=== PATIENT | female | born 1985 | race Caucasian/White ===

== ENCOUNTER → 2017-03-23 | Outpatient (CLI) | payer OTHER ==
[~2017-03-23] MED LIST: DEXA2TAB7 PO; DOC100 PO; DOCU240C84 PO; FERR325T24 PO; IBU800 PO; IBUP800T37 PO; IRO150 PO; LEVO1TAB31 PO; LOR5 PO; LOR5/325 PO; OXYC-865 PO; PER PO; PREN-85 PO; PRO25 PO
[2017-03-23 10:16] LABS: LDL CHOLESTEROL 127 mg/dl
== END ==
LOC: LAB 09:28
DX: E66.01 Morbid (severe) obesity due to excess calories (principal); Z87.898 Personal history of other specified conditions
CPT/HCPCS: 36415; 82040; 82247; 82306; 82310; 82374; 82435; 82465; 82565; 82607; 82947; 83036; 83540; 83550; 83718; 83970; 84075; 84132; 84134; 84155; 84295; 84425; 84450; 84460; 84478; 84520; 85027

== ENCOUNTER 2017-03-28 12:59 | Outpatient (RCR) | payer OTHER ==
[~2017-03-28] VITALS: Ht 160 cm; Wt 144.2 kg
--- NOTE | 2017-03-28 14:53 | Medical Nutrition Therapy ---
Nutrition Anthropometrics Height (Inches): 63.00 (stated) Weight (Pounds): 318 (standing scale) Daniel Nutrition Score: Daniel Nutrition Risk Score: Dietary Referral Nutrition Risk Factors: Nutrition Risk Comment: Physical Findings Physical Appearance: Morbidly Obese 40+ Skin Appearance Skin Appearance: Edema Edema Location Modifier: Edema Location: Type of Edema: Degree of Edema: Gastrointestinal Symptoms GI Symtoms: Tube Present: Bowel Sounds: Recent Bowel Pattern: Stool Characteristics: Nutrition/Food History Breakfast: protein shake Lunch: 4:00 yogurt Dinner: usually large meal- 2/1= 3c spagetti with meat sauce Snacks: fruit snacks Nutritional Education Nutrition Education Topic: Weight Loss Diet Learning Readiness: Interested Teaching Methods: Discussion, Handout, Demonstration Response to Teaching: Verbalize understanding Teaching Recipient: Patient Nutrition Counseling: Pt states planning on gastic sleep surgery. Pt states she is not an emotional eater. Pt states usually drinks a protein shake at brft then will not eat again until supper. By that time, she is very hungary and will ususally eat asnack prior to supper than with eat until stuffed at supper. Pt states has been successful with ideal protein diet in the past and carb counting. Discussed importance of changing eating habits and not eating unil over fed. Reviewed Skill fro Success from Dr Gonzalez handouts. Discussed how to change eating habits and obtain some wt loss prior to surgery. Pt will follow a modified high protein, low CHO diet. Will limit CHO to 80- 90gm/day and use plate method to increase non starchy veg and lean meat. Pt will f/u in 1 month. Will discuss exercise goals at that time. Nutrition Monitoring & Eval Nutritional Goals Comment: * Pt will loss minimum of 19#/3 month by: *Use plate method of portion control and limit high CHO foods to 90gm/day. *Will eat at least 3 meals/day. RD Patient Assessment Time: [address] Assessment Type: RD Education Follow Up Date: Apr 25, 2017 Nutritional Comment: Provided 60 minute MNT focusing on wt loss. Copies To Copies to: GIDEON CISNEROS MD, BETH Mar 28, 2017 14:53
== END 2017-05-02 ==
LOC: DIET 12:59
PROVIDERS: ATTEND Surgery
DX: Z71.3 Dietary counseling and surveillance (principal); E66.01 Morbid (severe) obesity due to excess calories; Z68.43 Body mass index [BMI] 50.0-59.9, adult
CPT/HCPCS: 97802

== ENCOUNTER 2017-05-23 21:29 | Emergency (ER) | payer OTHER ==
--- NOTE | 2017-05-23 21:40 | ER Report ---
History and Physical Time Seen By MD: 21:40 Hx. of Stated Complaint: ABDOMINAL PAIN MID LOWER ABDOMEN RADIATING TO BACK SINCE TUESDAY, WORSENING HPI/ROS CHIEF COMPLAINT: Abdominal pain HISTORY OF PRESENT ILLNESS: This is a 32 year old female. She is having abdominal pain. The pain is central abdomen and into the lower abdomen. Radiation to the back. Started Tuesday and worsening since then. Usually has constipation, but has had diarrhea for a few days. No nausea or vomiting. No fevers or chills. No dysuria or frequency. No periods since her ablation. Also history of cholecystectomy and x2. REVIEW OF SYSTEMS: Constitutional: No fever or chills. Eyes: No vision changes. ENT: No sore throat. No congestion. Cardiovascular: No chest pain. No palpitations. Respiratory: No cough. No shortness of breath. Gastrointestinal: As above. Genitourinary: As above. Musculoskeletal: No extremity pain. Skin: No rashes. Neurological: No weakness. No headache. Allergies: Coded Allergies: No Known Drug Allergies (Unverified , 10/16/08) Home Meds Active Scripts Oxycodone Hcl/Acetaminophen (PERCOCET 5-325 MG TABLET) 1 Each Tablet, 1 EACH PO Q4H Y for PAIN, #12 TAB 0 Refills Prov:DANG RODRIGUEZ MD 05/23/17 Discontinued Scripts Hydrocodone Bit/Acetaminophen (HYDROCODON-ACETAMINOPHEN 5-325) 1 Each Tablet, 1- 2 EACH PO Q4H Y for PAIN, #10 TAB 0 Refills Prov:ZULAY CORNEJO MD 05/12/16 Reviewed Nurses Notes: Yes Hx Smoking: No Smoking Status: Never Smoker Exposure to Second Hand Smoke?: No Hx Alcohol Use: Yes Constitutional Vital Sign - Last 24 Hours 05/23/17 05/23/17 05/23/17 05/23/17 21:33 21:45 21:55 22:00 Temp 98.3 Pulse 87 79 101 Resp 18 B/P (MAP) 126/94 123/57 (79) 117/58 (77) Pulse Ox 95 98 96 O2 Delivery Room Air 05/23/17 05/23/17 05/23/17 05/23/17 22:05 22:15 22:31 22:35 Pulse 91 ??? 87 B/P (MAP) 138/61 (86) Pulse Ox 90 90 93 05/23/17 05/23/17 05/23/17 05/23/17 22:45 22:55 23:00 23:10 Pulse ??? 89 ??? 99 B/P (MAP) ???/??? (3995) 116/74 (88) Pulse Ox 93 93 94 92 05/23/17 05/23/17 23:15 23:20 Pulse 97 B/P (MAP) 123/79 (94) Pulse Ox 93 Physical Exam General Appearance: The patient is alert. Mild acute distress due to pain. Non-toxic in appearance. Eyes: Pupils are equal, round. No pallor, injection or icterus. ENT: Mucous membranes are moist. Normal oral mucosa. Posterior oropharynx is normal. Respiratory: Lungs are clear to auscultation. Cardiovascular: Regular rate and rhythm. No murmurs, gallops or rubs. Normal capillary refill. Gastrointestinal: Abdomen is soft, tender throughout. Mild distension. Rebound but no guarding. Hypoactive bowel sounds. No costovertebral angle tenderness with percussion. Neurological: Alert and oriented x3. Skin: Warm and dry. DIFFERENTIAL DIAGNOSIS: After history and physical exam, differential diagnosis was considered for abdominal pain including but not limited to appendicitis, cholecystitis, gastritis and urinary tract infection. Medical Decision Making Data Points Result Diagram: 05/23/17214205/23/172142 Laboratory Hematology Test 05/23/17 21:43 Red Blood Count 4.77 M/uL (4.17-5.56) Mean Corpuscular Volume 87.5 fL (80.0-96.0) Mean Corpuscular Hemoglobin 30.4 pg (26.0-33.0) Mean Corpuscular Hemoglobin Concent 34.7 g/dL (32.0-36.0) Red Cell Distribution Width 13.5 % (11.5-14.5) Mean Platelet Volume 8.0 fL (7.2-11.1) Neutrophils (%) (Auto) 52.2 % (39.4-72.5) Lymphocytes (%) (Auto) 35.3 % (17.6-49.6) Monocytes (%) (Auto) 6.5 % (4.1-12.4) Eosinophils (%) (Auto) 5.2 % (0.4-6.7) Basophils (%) (Auto) 0.8 % (0.3-1.4) Nucleated RBC Relative Count (auto) 0.0 /100WBC Neutrophils # (Auto) 6.3 K/uL (2.0-7.4) Lymphocytes # (Auto) 4.3 K/uL (1.3-3.6) Monocytes # (Auto) 0.8 K/uL (0.3-1.0) Eosinophils # (Auto) 0.6 K/uL (0.0-0.5) Basophils # (Auto) 0.1 K/uL (0.0-0.1) Nucleated RBC Absolute Count (auto) 0.00 K/uL Urine Color Yellow Urine Clarity Clear Urine pH 6.0 pH (4.8-9.5) Urine Specific [place] 1.017 Urine Protein Negative mg/dL (NEGATIVE) Urine Glucose (UA) Negative mg/dL (NEGATIVE) Urine Ketones Negative mg/dL (NEGATIVE) Urine Blood Negative (NEGATIVE) Urine Nitrite Negative (NEGATIVE) Urine Bilirubin Negative (NEGATIVE) Urine Urobilinogen 2.0 mg/dL (0.2-1.9) Urine Leukocyte Esterase Negative (NEGATIVE) Urine RBC 1 /HPF (0-2/HPF) Urine WBC 1 /HPF (0-5/HPF) Urine Squamous Epithelial Cells Many /LPF (</=FEW) Urine Bacteria Few /HPF (NONE-FEW) Urine Mucus None /HPF (NONE-FEW) Sodium Level 141 mmol/L (137-145) Potassium Level 3.8 mmol/L (3.5-5.0) Chloride Level 100 mmol/L (98-107) Carbon Dioxide Level 26 mmol/L (22-31) Blood Urea Nitrogen 10 mg/dl (7-18) Creatinine 0.90 mg/dl (0.52-1.04) Glomerular Filtration Rate Calc > 60.0 Random Glucose 89 mg/dl (75-110) Lactate 1.1 mmol/L (0.7-2.1) Calcium Level 9.1 mg/dl (8.4-10.2) Total Bilirubin 0.7 mg/dl (0.2-1.3) Aspartate Amino Transf (AST/SGOT) 24 U/L (0-35) Alanine Aminotransferase (ALT/SGPT) 37 U/L (0-56) Alkaline Phosphatase 82 U/L (0-126) Total Protein 7.7 gm/dl (6.3-8.2) Albumin 4.2 g/dl (3.5-5.0) Amylase Level 35 U/L (0-110) Lipase 77 U/L (23-300) Human Chorionic Gonadotropin, Qual Negative (NEGATIVE) Chemistry Test 05/23/17 21:43 White Blood Count 12.1 k/uL (4.5-11.0) Red Blood Count 4.77 M/uL (4.17-5.56) Hemoglobin 14.5 g/dL (12.0-16.0) Hematocrit 41.7 % (34.0-47.0) Mean Corpuscular Volume 87.5 fL (80.0-96.0) Mean Corpuscular Hemoglobin 30.4 pg (26.0-33.0) Mean Corpuscular Hemoglobin Concent 34.7 g/dL (32.0-36.0) Red Cell Distribution Width 13.5 % (11.5-14.5) Platelet Count 207 K/uL (150-450) Mean Platelet Volume 8.0 fL (7.2-11.1) Neutrophils (%) (Auto) 52.2 % (39.4-72.5) Lymphocytes (%) (Auto) 35.3 % (17.6-49.6) Monocytes (%) (Auto) 6.5 % (4.1-12.4) Eosinophils (%) (Auto) 5.2 % (0.4-6.7) Basophils (%) (Auto) 0.8 % (0.3-1.4) Nucleated RBC Relative Count (auto) 0.0 /100WBC Neutrophils # (Auto) 6.3 K/uL (2.0-7.4) Lymphocytes # (Auto) 4.3 K/uL (1.3-3.6) Monocytes # (Auto) 0.8 K/uL (0.3-1.0) Eosinophils # (Auto) 0.6 K/uL (0.0-0.5) Basophils # (Auto) 0.1 K/uL (0.0-0.1) Nucleated RBC Absolute Count (auto) 0.00 K/uL Urine Color Yellow Urine Clarity Clear Urine pH 6.0 pH (4.8-9.5) Urine Specific [place] 1.017 Urine Protein Negative mg/dL (NEGATIVE) Urine Glucose (UA) Negative mg/dL (NEGATIVE) Urine Ketones Negative mg/dL (NEGATIVE) Urine Blood Negative (NEGATIVE) Urine Nitrite Negative (NEGATIVE) Urine Bilirubin Negative (NEGATIVE) Urine Urobilinogen 2.0 mg/dL (0.2-1.9) Urine Leukocyte Esterase Negative (NEGATIVE) Urine RBC 1 /HPF (0-2/HPF) Urine WBC 1 /HPF (0-5/HPF) Urine Squamous Epithelial Cells Many /LPF (</=FEW) Urine Bacteria Few /HPF (NONE-FEW) Urine Mucus None /HPF (NONE-FEW) Glomerular Filtration Rate Calc > 60.0 Lactate 1.1 mmol/L (0.7-2.1) Calcium Level 9.1 mg/dl (8.4-10.2) Total Bilirubin 0.7 mg/dl (0.2-1.3) Aspartate Amino Transf (AST/SGOT) 24 U/L (0-35) Alanine Aminotransferase (ALT/SGPT) 37 U/L (0-56) Alkaline Phosphatase 82 U/L (0-126) Total Protein 7.7 gm/dl (6.3-8.2) Albumin 4.2 g/dl (3.5-5.0) Amylase Level 35 U/L (0-110) Lipase 77 U/L (23-300) Human Chorionic Gonadotropin, Qual Negative (NEGATIVE) Urinalysis Test 05/23/17 21:43 Urine Color Yellow Urine Clarity Clear Urine pH 6.0 pH (4.8-9.5) Urine Specific [place] 1.017 Urine Protein Negative mg/dL (NEGATIVE) Urine Glucose (UA) Negative mg/dL (NEGATIVE) Urine Ketones Negative mg/dL (NEGATIVE) Urine Blood Negative (NEGATIVE) Urine Nitrite Negative (NEGATIVE) Urine Bilirubin Negative (NEGATIVE) Urine Urobilinogen 2.0 mg/dL (0.2-1.9) Urine Leukocyte Esterase Negative (NEGATIVE) Urine RBC 1 /HPF (0-2/HPF) Urine WBC 1 /HPF (0-5/HPF) Urine Squamous Epithelial Cells Many /LPF (</=FEW) Urine Bacteria Few /HPF (NONE-FEW) Urine Mucus None /HPF (NONE-FEW) EKG/Imaging Imaging EXAMINATION: CT abdomen and pelvis with IV contrast HISTORY: Central abdominal pain, radiating to the back. TECHNIQUE: Axial CT images of the abdomen and pelvis were obtained with IV contrast, with coronal and sagittal 2D reconstructed images. One of the following dose optimization techniques was utilized in the performance of this exam: Automated exposure control; adjustment of the mA and/ or kV according to the patient's size; or use of an iterative reconstruction technique. Specific details can be referenced in the facility's radiology CT exam operational policy. Contrast: 75 mL of IV Isovue-370. COMPARISON: None. FINDINGS: Liver: Negative. Gallbladder and bile ducts: Cholecystectomy. No bile duct dilatation. Spleen: Negative. Pancreas: Negative. Adrenal glands: Negative. Kidneys: Negative. No hydronephrosis or urinary calculi. Bowel and peritoneum: Small bowel and colon are normal in caliber. No bowel obstruction. There is localized pericolonic stranding adjacent to the antimesenteric border of the proximal sigmoid colon in the anterior pelvis, with central fat attenuation. CT appearance is compatible with epiploic appendagitis. No bowel wall thickening or localized colonic diverticula. Remainder of the small bowel and colon are normal in caliber and unremarkable by CT. Normal appendix in the right lower quadrant. No free fluid or free intraperitoneal air. Pelvic structures: Negative. Lymph node assessment: Negative. Vessels: Negative. Musculoskeletal: Negative. Body wall: Tiny fat-containing umbilical hernia. Lung bases: Negative. IMPRESSION: 1. Localized changes along the proximal sigmoid colon compatible with epiploic appendagitis. 2. No other acute intra-abdominal findings. 3. Normal appendix. 4. Cholecystectomy. Report Dictated By: Pepe William MD at 05/23/2017 11:12 PM ED Course/Re-evaluation Clinical Indication for ER IV: Hydration, IV Access ED Course Labs and imaging results reviewed with the patient. She felt much better after Morphine 4mg IV and Zofran 4mg IV. Also received 1000cc NS. Treatment as noted below. Decision to Disposition Date: May 23, 2017 Decision to Disposition Time: 23:27 Depart Departure Latest Vital Signs Vital Signs Date Time Temp Pulse Resp B/P (MAP) Pulse Ox O2 Delivery O2 Flow Rate FiO2 05/23/17 23:20 97 93 05/23/17 23:15 123/79 (94) 05/23/17 21:33 98.3 18 Room Air Impression: Primary Impression: Epiploic appendagitis Condition: Improved Disposition: HOME OR SELF-CARE Referrals: ZULAY CORNEJO MD (PCP) New Scripts Oxycodone Hcl/Acetaminophen (PERCOCET 5-325 MG TABLET) 1 Each Tablet 1 EACH PO Q4H Y for PAIN, #12 TAB 0 Refills Prov: DANG RODRIGUEZ MD 05/23/17 Patient Instructions: Acute Abdominal Pain (ED) Additional Instructions: Your pain appears to be caused by an inflammatory condition around the bowel called epiploic appendagitis. This is a benign condition that should resolve on it's own over the next 1-2 weeks. Take Ibuprofen 200mg over the counter tablets, taking 4 tablets every 8 hours. Take Percocet 5/325, one every 4 hours as needed for pain. Follow-up with Dr. Chang (general surgery) or with your regular doctor if the symptoms do not resolve. You can always return to the ER for worsening symptoms as well. DANG RODRIGUEZ MD May 23, 2017 21:40
[2017-05-23] MEDS ORDERED: NS(*) 0.9% 1000 ML BAG 1,000 ML IV ONE (21:45)
[2017-05-23] MEDS ORDERED: ONDANSETRON 4 MG/2 ML VIAL IVP ONE (21:45)
[2017-05-23] MEDS ORDERED: MORPHINE 4 MG/ML SDV IVP ONE (21:45)
[2017-05-23 21:53] LABS: PLATELET COUNT, AUTOMATED 207 K/uL (150-450)
[2017-05-23] MEDS ORDERED: IOPAMIDOL 76% 75 ML INFUS BTL 75 ML ONE (22:01)
[2017-05-23 23:15] VITALS: BP 123/79
--- NOTE | 2017-05-23 23:19 | RADIOLOGY IMAGING REPORT ---
FACILITY: [facility] - [place] PATIENT NAME: Janet Allison : 1985 MR: [id number] V: [id number] EXAM DATE: ORDERING PHYSICIAN: DANG RODRIGUEZ TECHNOLOGIST: [place] [facility] [place]: Janet Allison : 1985 Visit/Account:[id number] Date of Sevice: 05/23/2017 EXAMINATION: CT abdomen and pelvis with IV contrast HISTORY: Central abdominal pain, radiating to the back. TECHNIQUE: Axial CT images of the abdomen and pelvis were obtained with IV contrast, with coronal a nd sagittal 2D reconstructed images. One of the following dose optimization techniques was utilized in the performance of this exam: Autom ated exposure control; adjustment of the mA and/or kV according to the patient's size; or use of an i terative reconstruction technique. Specific details can be referenced in the facility's radiology C T exam operational policy. Contrast: 75 mL of IV Isovue-370. COMPARISON: None. FINDINGS: Liver: Negative. Gallbladder and bile ducts: Cholecystectomy. No bile duct dilatation. Spleen: Negative. Pancreas: Negative. Adrenal glands: Negative. Kidneys: Negative. No hydronephrosis or urinary calculi. Bowel and peritoneum: Small bowel and colon are normal in caliber. No bowel obstruction. There is lo calized pericolonic stranding adjacent to the antimesenteric border of the proximal sigmoid colon in the anterior pelvis, with central fat attenuation. CT appearance is compatible with epiploic appendag itis. No bowel wall thickening or localized colonic diverticula. Remainder of the small bowel and colon are normal in caliber and unremarkable by CT. Normal appendix in the right lower quadrant. No free fluid or free intraperitoneal air. Pelvic structures: Negative. Lymph node assessment: Negative. Vessels: Negative. Musculoskeletal: Negative. Body wall: Tiny fat-containing umbilical hernia. Lung bases: Negative. IMPRESSION: 1. Localized changes along the proximal sigmoid colon compatible with epiploic appendagitis. 2. No other acute intra-abdominal findings. 3. Normal appendix. 4. Cholecystectomy. Report Dictated By: Pepe William MD at 05/23/2017 11:12 PM Report E-Signed By: Pepe William MD at 05/23/2017 11:15 PM WSN:[id number]
[2017-05-23] MEDS ORDERED: OXYC-865 PO (23:29)
[2017-05-23] MEDS ORDERED: oxyCODONE/ACETAMIN 5/325MG TH 2 TAB/BOTTLE PO ONE (23:30)
== END 2017-05-23 23:40 | disposition home or self-care (01) ==
LOC: ER 21:55
DX: K63.89 Other specified diseases of intestine (principal); Z90.49 Acquired absence of other specified parts of digestive tract
CPT/HCPCS: 74177; 81001; 82150; 83605; 83690; 84703; 85025; 96361; 96374; 96375; 99284; J2270; J2405; J7030; Q9967; 82040; 82247; 82310; 82374; 82435; 82565; 82947; 84075; 84132; 84155; 84295; 84450; 84460; 84520